=== PATIENT | male | born 1990 | race Caucasian/White ===

== ENCOUNTER 2024-12-16 16:43 | Emergency (ER) | payer BC, SELFPAY ==
--- NOTE | ~2024-12-16 | XR_ITS ---
EXAMINATION: XR chest 2V Exam Date/Time: 12/16/2024 17:15 LUMBER CARRIER HISTORY: Cough x 3 days. SOB x today. HX pneumonia Comparison: None. RESULT: Lines, tubes, and devices: None. Lungs and pleura: Clear. Cardiomediastinal silhouette: Normal. Other: No acute osseous or upper abdominal finding. IMPRESSION: No acute cardiopulmonary process. Reviewed, dictated and finalized at location K. ER CARRIER
[2024-12-16 16:50] VITALS: BP 139/85; PULSE 84; RESP 20; TEMP 36.5; O2SAT 100
--- NOTE | 2024-12-16 17:07 | ED.URI ---
HPI - URI/Sore Throat General Chief Complaint: Upper Respiratory Infection Stated Complaint: Pneumonia Symptoms Time Seen by Provider: 12/16/24 17:05 Source: patient Mode of arrival: ambulatory Limitations: no limitations History of Present Illness HPI Narrative: Erich is a 34-year-old male patient presenting to the clinic today with complaints of possible pneumonia. Report he has cough, some shortness of breath/back pain, feeling feverish, and congestion. He reports he has had pneumonia before and these are similar symptoms that he had had when he had pneumonia. He reports symptoms have been going on for approximately 2-3 days. MD elicited complaint: fever, cough, rhinorrhea and nasal congestion Related Data Home Medications ?Medication ?Instructions ?Recorded ?Confirmed ?Last Taken ?Type No Home Medications 12/16/24 12/16/24 Unknown History Allergies Allergy/AdvReac Type Severity Reaction Status Date / Time iodine Allergy Rash Verified 12/16/24 16:51 zolpidem (From Ambien) AdvReac Hallucinati Verified 12/16/24 16:51 ng Review of Systems Review of Systems: Pertinent positives per HPI. Patient denies any fever, chills, rash, headache, visual changes, dizziness, chest pain, palpitations, nausea, vomiting, diarrhea, constipation, abdominal pain, or any urinary issues. PMFSH Comments At the time of my signature, I reviewed and agree with the nursing past medical, surgical, social, and family history. There is no relevant family history pertinent to the patient complaint. Exam Narrative: General: Well-developed, well nourished, in no apparent distress Head: Normocephalic, atraumatic Eyes: Pupils equally round and reactive to light bilaterally, EOM intact, sclera and conjunctive clear, no discharge, lids normal Ears: TMs intact and clear, ear canals clear, no drainage, grossly hearing normal. Nose: Nares patent, clear nasal discharge, no inflammation, no sinus tenderness. Mouth: Oral pharynx without lesions or masses, good dentition, MMM. Postnasal drip Neck: Supple, trachea midline, no enlargement of anterior or posterior cervical nodes, no thyroid masses or goiter palpable. Cardio: Regular rate and rhythm, s1 and s2 normal, no murmur appreciated. Resp: Clear to auscultation bilaterally, no rhonchi, rales, wheezing or rubs Course Course Emergency Course: Portions of this record may have been created with voice recognition software. Level of Care: Express Care Visit Vital Signs Vital signs: Vital Signs Temperature 36.5 C 12/16/24 16:50 Pulse Rate 84 12/16/24 16:50 Respiratory Rate 20 12/16/24 16:50 Blood Pressure 139/85 12/16/24 16:50 Pulse Oximetry 100 12/16/24 16:50 Oxygen Delivery Room Air 12/16/24 16:50 Temperature 36.5 C 12/16/24 16:50 Pulse Rate 84 12/16/24 16:50 Respiratory Rate 20 12/16/24 16:50 Blood Pressure 139/85 12/16/24 16:50 Pulse Oximetry 100 12/16/24 16:50 Oxygen Delivery Room Air 12/16/24 16:50 Vital signs reviewed MDM - URI/Sore Throat MDM Narrative Medical decision making narrative: At the time of visit patient is resting comfortably on the exam table. Patient appears to be nontoxic. Labs: Influenza testing was negative in the clinic today. Diagnostics: Chest x-rays negative for any acute cardiopulmonary process. Plan: I suspect patient has URI with viral syndrome. Supportive measures were discussed with the patient and they voiced understanding discharge instructions and agrees to treatment plan. Return precautions reviewed Differential Diagnosis Differential diagnosis: Likely sinusitis, viral infection, influenza and pharyngitis Lab Data Labs: Lab Results 12/16/24 Range/Units 17:08 POC Influenza A Ag Negative (Negative) POC Influenza B Ag Negative (Negative) Imaging Data Radiologist's impression: ITS Impressions Chest X-Ray 12/16/24 17:26 IMPRESSION: No acute cardiopulmonary process. Discharge Plan Discharge Clinical Impression: Upper respiratory infection, Viral infection Patient Disposition: Home, Self-Care Condition: Stable Instructions: Antibiotic Form, Viral Syndrome (ED), Cold Symptoms (ED) Additional Instructions: Influenza testing is negative in the clinic today. Chest x-rays negative for any acute cardiopulmonary process. May take DayQuil/NyQuil for cold/flu symptoms Increase fluids and stay well hydrated Tylenol/motrin for pain/fever Flonase and OTC antihistamines as directed Vicks vapor rub to open sinuses Sinus rinses for congestion Cepacol spray, cough drops, throat lozenges, warm tea with honey/lemon, gargle salt water to soothe throat BRAT diet for diarrhea Clear liquids x 24 hours then advance as tolerated for nausea/vomiting Go to the ED if you develop a worsening in your condition- high fever not controlled by Tylenol or Motrin, dehydration, weakness, lethargy, shortness of breath, or chest pain. Follow up with your PCP in 3-5 days if symptoms persist. Patient Language: Lithuanian Prescriptions: No Action No Home Medications Follow-up/Referrals: PHYSICIAN,LIFE INSURANCE UNDERWRITER [Primary Care Provider] - Stand Alone Forms: Work/School Release IP Quality NIHSS Nursing Documentation ED NIHSS nursing documentation: reviewed/agree
[2024-12-16 17:09] LABS: EDINFLUASCREEN Negative (Negative); EDINFLUBSCREEN Negative (Negative)
== END 2024-12-16 17:36 | disposition home or self-care (01) ==
PROVIDERS: Emergency Provider Nurse Practitioner Family
DX: J06.9 Acute upper respiratory infection, unspecified (principal); B34.9 Viral infection, unspecified
CPT/HCPCS: 71046; 87804; 99203; G0463

== ENCOUNTER 2025-08-05 16:21 | Emergency (ER) | payer BC, SELFPAY ==
--- OUTSIDE RECORDS SUMMARY | 2025-01-02 10:45 | XMS_ITS ---
Author Organization [facility] Address [facility] [facility] [address] [place] [address] Care Team Providers Care Bench Grinder Name Role Phone Ricardo AYON, Raya Primary Care Provider Unavailab Nighat Lundberg Unavailable [phone] REASON FOR VISIT New Patient Social History Sex Assigned At : Social History Observation Description Sex Assigned At Male Encounters Encounter Location Date Provider Diagnosis [facility] [place] [address] [facility] [address] [place] [address] 01/02/2025 Nighat Chávez Plan Of Treatment No Information Progress Notes * Tierra VIERAOB:1990 (35 yo M)Acc No.[id number]:01/02/2025 Patient: Erich Walker Provider: DILEEP MCGUIRE :1990 A ge:34 Y S ex:Male Date:01/02/2025 [facility] Pcp:Raya Silva NP Subjective: * Chief Complaints: * N ew Patient Billing Information: * Procedure Codes: * Electronic signature of DILEEP Felix on 08/05/2025 at 05:09 PM CDT Sign off status: Pending * Provider: DILEEP MCGUIRE Date: 0 01/02/2025 Generated for Joon tomlinson/Maurilio/eTransmitting on: 1 05:09 PM CDT
--- NOTE | ~2025-08-05 | CT_ITS ---
EXAMINATION: CT abdomen pelvis wo eamon, 08/05/2025 16:45 CDT HISTORY: R flank/suprapubic pain, hematuria COMPARISON: No comparisons available. TECHNIQUE: CT scan of the abdomen and pelvis was performed without IV contrast. One or more of the following dose reduction techniques were used: automated exposure control, adjustment of the mA and/or kV according to patient size, use of iterative reconstruction technique. Unless otherwise stated, incidental findings do not require dedicated follow up imaging FINDINGS: CT abdomen: LUNG BASES: The lung bases are clear. The visualized portions of the heart and pericardium are unremarkable. LIVER: Unremarkable, liver contours intact, no lesions. SPLEEN: Unremarkable, no splenomegaly. KIDNEYS: Right Kidney: Right kidney mild hydronephrosis and hydroureter due to an obstructing proximal ureteral calculus 2 x 2 by 2 mm. Left Kidney: Left kidney midpole 2 mm calculus, no hydronephrosis. ADRENAL GLANDS: Unremarkable. PANCREAS: Unremarkable. GALLBLADDER/BILIARY: Unremarkable. No biliary dilatation. STOMACH AND ESOPHAGUS: Visualized stomach and esophagus within normal limits. BOWEL/MESENTERY: No colitis or diverticulitis. Appendix normal. Mesentery normal. No dilated small bowel loops. ADENOPATHY/RETROPERITONEUM: No lymphadenopathy. AORTA/VASCULATURE: Normal caliber aorta. FREE FLUID OR FREE AIR: None. CT pelvis: SOLID ORGANS/REPRODUCTIVE: Unremarkable. BLADDER: Within normal limits. OSSEOUS STRUCTURES: No acute osseous abnormality.No suspicious lesions. OVERLYING SOFT TISSUES: Unremarkable. IMPRESSION: 1. Right-sided obstructive uropathy Reviewed, dictated and finalized at location P.
[2025-08-05 16:29] VITALS: BP 124/72; PULSE 69; RESP 16; TEMP 36.6; O2SAT 100
[2025-08-05 16:34] VITALS: BP 124/72; PULSE 64; RESP 16; TEMP 36.6; O2SAT 100
[2025-08-05 16:42] LABS: Hematocrit 41.3 % (42.0-52.0); Hemoglobin 13.5 g/dL (14.0-18.0); Immature Granulocyte Percent A 0.1 % (0-0.5); Lymphocytes Absolute Auto 2.41 K/mm3 (0.9-3.2); Mean Corpuscular HGB Conc 32.7 g/dl (32-36); Mean Corpuscular Hemoglobin 28.7 pg (26-34); Mean Corpuscular Volume 87.9 fl (80-100); Nucleated Red Blood Cells Absolute Auto 0.000 K/mm3 (0.0-0.012); Nucleated Red Blood Cells Perc 0.0 % (0.0-0.2); Platelet Count Result 256 k/mm3 (150-375); Red Blood Count 4.70 M/mm3 (4.6-6.20); White Blood Count 8.2 K/mm3 (4.5-10.0)
--- OUTSIDE RECORDS SUMMARY | 2025-08-05 16:44 | XMS_ITS | Encounter Summary ---
Author Organization [facility] Healthcare Address [address] [place] [address] Care Team Providers Care Texturing Machine Fixer Name Role Phone Raya Silva NP Primary Care Provider [phone] Reason for Visit * Reason Onset Date Comments Appointment Request 08/05/2025 Encounter Details Date Type Department Care Team (Late st Contact Info) Description 08/05/[address] [facility] Medical Group Primary Care at [place] [id number] [place] [address] Raya Silva NP [address] [place] [address] [address] [place] [address] Appointment Request Social History Tobacco Use Types Packs/Day Years Used Date Smoking Tobacco: Every Day Vaping Smokeless Tobacco: Never AUDIT-C Answer Date Recorded Q1: How often do you have a drink containing alcohol? Never 11/25/2024 Q2: How many drinks containi ng alcohol do you have on a typical day when you are drinking? Patient does not drink Q3: How often do you have si x or more drinks on one occasion? 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 Visit Type: Established Patient What is the reason for the visit? [facility] follow up What is the reason we were unable to schedule the appointment? Current appointment availability didnot meet patient's need. If applicable, were all members of the patient's PCP care team offered (e.g., nurse practioner(s), physician intellectual property legal assistant(s)) ? Yes Additional Comments: patient was calling to schedule a [facility] follow up appt he was seen at the [facility] on 08/02/25 for blood in his urine with abdominal pain. He states all the tests they ranwere negative so he was told to follow up with his PCP. NANY Dos Santos has epic anesthesia analyst appts available until 09/10, patient wants to be seen sooner then taht, he doesn't have blood in his urine anymore but he is le ving mild/moderate abdominal pain daily, more frequently so he wants to be seen Elias. Does message need to be routed? Yes-Action Needed documented in this encounter Plan of Treatment Not on file documented as of this encounter Visit Diagnoses Not on filedocumented in this encounter Care Teams Texturing Machine Fixer Relationship Specialty Start Date End Date Raya Silva NP [address] [facility] [address] [place] [address] PCP - General Family Medicine 11/25/24 documented as of this encounter
--- OUTSIDE RECORDS SUMMARY | 2025-08-05 16:44 | XMS_ITS | Encounter Summary ---
Author Organization [facility] Healthcare Address [address] [place] [address] Care Team Providers Care Chainstitch Elastic Attacher Name Role Phone Raya Silva NP Primary Care Provider [phone] Encounter Details Date Type Department Care Team (Late st Contact Info) Description 08/02/2025 Results Follow-Up [facility] Medical Group Convenient Care at [place] [address] [place] [address] Rose Marquez NP [address] [place] [address] [address] [place] [address] Trichomonas vaginalis PCR Urine, N. gonorrhoeae/C. 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
--- OUTSIDE RECORDS SUMMARY | 2025-08-05 16:45 | XMS_ITS | Clinical Summary ---
Author Organization [address] Address [address] [facility] 5th [place] [address] Care Team Providers Care Engine Watchman Name Role Phone Raya Silva NP Primary Care Provider [phone] Allergies Active Allergy Reactions Criticality Noted Date Comments Iodine Rash Medium 11/25/2024 Zolpidem Other (See comments) High 11/22/2014 Causes pt to sleep walk, becomes aggressive with blackouts, In 2011 found sleep walking in his backyard with bow and arrow. Medications No known medications Active Problems Problem Noted Date Diagnosed Date ADHD 11/25/2024 Assessment & Plan (11/25/2024 12:27 PM PHARMACEUTICAL OFFICER): History of ADHD. He is not sure he wants to restart treatment. Since his general store manager and coworkers have said something to him I recommended that he be evaluated by Psychiatry. I referred him to [facility] associates here in town. Annual physical exam 11/25/2024 Assessment & Plan (11/25/2024 12:28 PM PHARMACEUTICAL OFFICER): -Recommended: Healthy diet. Avoiding junk food/fast food. -30 minutes of exercise most days of the week. Increase to 45 minutes for weight loss. Health Maintenance reviewed - labs ordered today. -Influenza vaccine every year Recommend: - Topic Date Due Pneumococcal vaccine <65 (1 of 2 - PCV) Never done Varicella Vaccines (1 of 2 - 13+ 2-dose series) Never done -F/u in 1 year for Annual PE or sooner if needed Bipolar disorder 11/22/2014 Resolved Problems Problem Noted Date Diagnosed Date Resolved Date Marijuana abuse 11/22/2014 11/25/2024 Patient nonadherence 11/22/2014 025 Encounters Date Type Department Care Team Description 08/05/2025 Telephone [facility] Primary Care at [address] [phone] Raya Silva NP Appointment Request 08/02/2025 Results Follow-Up [facility] Convenient Care at [address] [phone] Rose Marquez NP Trichomonas vaginalis PCR Urine, N. gonorrhoeae/C. trachomatis Amplification Urine, Urine culture Urine, clean voided 07/31/2025 3:51 PM CDT - 07/31/2025 11:59 [place] [address] Abdominal pain, unspecified abdominal location Discharge Disposition: Discharge to home or self care 07/31/2025 3:30 PM CDT Office Visit [facility]ient Care at [address] [phone] Kamilah Abel NP Hematuria, unspecified type (Primary Dx); Abdominal pain, unspecified abdominal location from Last 3 Months Immunizations Immunization Administration Dates Next Due DTP 06/06/1997,03/07/1994,04/30/1993 ,03/15/1993 Hep A, Pediatric 03/12/2007,08/25/2006 Hep B, Adolescent or Pediatric 08/20/2001,1997,06/06/1997 HiB 06/06/1997,03/07/1994,04/30/1993 ,03/15/1993 Influenza, Unspecified 08/21/2024(Deferr ed: Patient Refused),08/21/2023(Deferred: Patient Refused),01/07/2012 MMR 07/20/1998,03/07/1994 Meningococcal MCV4P (Menactra) 08/25/2006 OPV 06/06/1997,03/07/1994,04/30/1993 ,03/15/1993 Td, adsorbed 12/07/2004 Tdap 05/18/2018 Surgical History Surgery Date Site/Laterality Comments APPENDECTOMY Medical History Medical History Date Comments Bipolar disorder POTS (postural orthostatic tachycardia syndrome) Family History Medical History Relation Name Comments sarcoma Brother Brain cancer Maternal Grandfather Breast cancer Maternal Grandmother Breast cancer Mother Pancreatic cancer Paternal Grandfather Stomach cancer Paternal Grandfather Throat cancer Paternal Grandfather Breast cancer Paternal Grandmother Diabetes Paternal Grandmother Relation Name Status Comments Brother Maternal Grandfather Maternal Grandmother Mother Paternal Grandfather Paternal Grandmother Social History Tobacco Use Types Packs/Day Years Used Date Smoking Tobacco: Every Day Vaping Smokeless Tobacco: Never Tobacco Cessation:Ready to Q uit: Not Asked; Counseling Given: Not Answered AUDIT-C Answer Date Recorded Q1: How often [...] on file Legal Sex Male 9:08 AM PHARMACEUTICAL OFFICER Gender Identity Not on file Sexual Orientation Not on file Obstetrics History Last Filed Vital Signs Vital Sign Reading Time Taken Comments Blood Pressure 102/68 07/31/2025 3:46 PM CDT Pulse 74 07/31/2025 3:46 PM CDT Temperature 36.4 C (97.5 F) 07/31/2025 3:46 PM CDT Respiratory Rate 16 07/31/2025 3:46 PM CDT Oxygen Saturation 99% 07/31/2025 3:46 PM CDT Inhaled Oxygen Concentration - - Weight 77.1 kg (170 lb) 07/31/2025 3:46 PM CDT Height 179.1 cm (5' 10.5) 11/25/2024 11:[address] Body Mass Index 24.05 11/25/2024 11:45 AM PHARMACEUTICAL OFFICER Plan of Treatment Health Maintenance Due Date Last Done Comments Varicella Vaccines (1 of 2 - 13+ 2-dose series) 2005 Pneumococcal vaccine <65 (1 of 2 - PCV) 2011 HPV Vaccines (1 - 3-dose SCD M series) 2019 Influenza Vaccine (#1) 2025 01/07/2012 Depression Screening 11/25/2025 11/25/2024, 11/25/19 25 Regular Well Visit/Exam 18-64 11/25/2025 11/25/2024 DTaP/Tdap/Td Vaccine (6 - Td or Tdap) 05/18/2028 05/18/2018, 12/07/2004, 06/06/1997, Additional history exists Hepatitis B Screening Completed 08/20/2001 , 07/20/1998, 06/06/1997 Hepatitis C Screening Completed 11/25/2024 Procedures Procedure Name Priority Date/Time Associated Diagnosis Comments POCT URINALYSIS DIPSTICK Routine 07/31/2025 3:53 PM CDT Abdominal pain, unspecified abdominal location URINE CULTURE Routine 07/31/2025 3:51 PM CDT Abdominal pain, unspecified abdominal location N. GONORRHOEAE/C. TRACHOMATIS AMPLIFICATION Routine 07/31/2025 3:51 PM CDT Abdominal pain, unspecified abdominal location TRICHOMONAS VAGINALIS PCR Routine 07/31/2025 3:51 PM CDT Abdominal pain, unspecified abdominal location HEPATITIS C ANTIBODY Routine 11/25/2024 12:11 PM PHARMACEUTICAL OFFICER Need for hepatitis C screening test Encounter for hepatitis C screening test for low risk patient from Last 3 Months or Most Recently Relevant to Health Maintenance Results * (ABNORMAL) POCT urinalysis dipstick (07/31/2025 3:53 PM CDT) Color, Urine, POC Raine Clarity, ur, POC Turbid(A) Clear Glucose, ur, POC Negative Negative Bilirubin, ur, POC Negative Negative Ketones, ur, POC Negative Negative Specific [place], POC 1.015 1.003 - 1.030 Blood, ur, POC Large(A) Negative pH, ur, POC 7.5 5.0 - 8.0 Protein, ur, POC Negative Negative Urobilinogen, urine, POC 0.2 0.2 - 1.0 mg/dL Nitrite, ur, POC Negative Negative Leukocytes, ur, POC Negative Negative Lot Number [id number] Urine 07/31/2025 3:53 PM CDT Kamilah Abel NP POINT OF CARE TEST ORDERABLES Final Result * N. gonorrhoeae/C. trachomatis Amplification Urine (07/31/2025 3:51 PM CDT) C. trachomatis Not Detected [facility] Comment:Testing performed by : [facility], [address] [place] [address]., [id number] N. gonorrhoeae Not Detected [facility] Comment: Interpretive Data This assay detects Chlamydia trachomatis and Neisseria gonorrhoeae by nucleic acid amplification testing (NAAT). This assay has been cleared by the [place] Food and Drug administration. The performance characteristics of this test have been verified by the [facility] Molecular Infectious Disease laboratory. The performance characteristics of this test have not been evaluated in individuals less than 14 years of age. Current Interpretive Data was last revised on 2023. Testing performed by: [facility], [address] [place] [address]., [id number] Urine (None) 07/31/2025 3:51 PM CDT 08/01/2025 3:12 PM CDT Kamilah Abel NP LAB MICROBIOLOGY - GENERAL ORD ERABLES Final Result [facility] [id number] [address] Department [place] [address] [facility] * Trichomonas vaginalis PCR Urine (07/31/2025 3:51 PM CDT) Trichomonas DNA Not Detected [facility] Comment: Interpretive Data This assay detects Trichomonas vaginalis by nucleic acid amplification testing (NAAT). This assay has been cleared by the [place] Food and Drug administration. The performance characteristics of this test have been verified by the [facility] Molecular Infectious Disease laboratory. The performance of this test has not been evaluated in individuals less than 18 years of age. Current Interpretive Data was last revised on 2023. Testing performed by: [facility], [address] [place]., [address] Urine 07/31/2025 3:51 PM CDT 08/01/2025 3:12 PM CDT Kamilah Abel NP LAB MICROBIOLOGY - GENERAL ORD ERABLES Final Result Performing Organization Address [facility] de Phone Number [facility] [address] [address] [place] [address] [facility] * Urine culture Urine, clean voided (07/31/2025 3:51 PM CDT) Report Final Report: Less than 100,000 colonies/mL (clinically insignificant growth based on current clinical standards) Comment:Testing performed by : [facility], [address] [place] [address]., [id number] Organism (CLINICALLY INSIGNIFICANT GROWTH [facility] Urine, clean voided 07/31/2025 3:51 PM CDT 07/31/2025 10:39 PM CDT Narrative [facility] - 08/02/2025 9:16 AM CDT Testing performed by [facility] Microbiology Laboratory ([phone]) Kamilah Abel NP LAB MICROBIOLOGY - GENERAL ORD ERABLES Final Result Performing Organization Address [facility] de Phone Number [facility] [address] [address] [place] [address] * Hepatitis C antibody Blood (11/25/2024 12:11 PM PHARMACEUTICAL OFFICER) Hep C Ab Nonreactive Nonreactive Comment: Interpretive Data Nonreactive: Antibodies to HCV not detected. Does NOT exclude the possibility of recent exposure to HCV. Equivocal: Equivocal for HCV antibodies. Supplemental molecular testing will be automatically performed to determine infection status in accordance with current CDC screening recommendations. Reactive: Positive for HCV antibodies. This may represent current or past HCV infection. Supplemental molecular testing will be automatically performed to determine current infection status in accordance with current CDC screening recommendations. Interpretive data was last revised on 2020. Blood 11/25/2024 12:1 1 PM PHARMACEUTICAL OFFICER 11/25/2024 7:23 PM PHARMACEUTICAL OFFICER Raya Silva NP LAB MICROBIOLOGY - GENERAL OR DERABLES Final Result [facility] [id number] [address] Department [place] [address] from Last 3 Months or Most Recently Relevant to Health Maintenance Insurance [employer] OOS Care Teams Engine Watchman Relationship Specialty Start Date End Date Raya Silva NP [address] [facility] [address] [place] [address] PCP - General Family Medicine 11/25/24
[2025-08-05 16:53] LABS: Alanine Aminotransferase 15 U/L (6-50); Albumin Level 4.4 g/dL (3.5-5.1); Alkaline Phosphatase 75 U/L (38-126); Anion Gap 7 mmol/L (4-12); Aspartate Amino Transferase 30 U/L (17-59); Bilirubin,Total 0.5 mg/dL (0.2-1.3); Blood Urea Nitrogen 15 mg/dL (9-20); Calcium 9.2 mg/dL (8.4-10.2); Carbon Dioxide 28 mmol/L (22-30); Chloride 103 mmol/L (98-107); Estimated CRCL calculation 106 ml/min; Estimated Glomerular Filt Rate > 60; Glucose 88 mg/dL (65-110); Potassium 4.6 mmol/L (3.4-5.0); Sodium 138 mmol/L (137-145); Total Protein 7.4 g/dL (6.3-8.2)
--- NOTE | 2025-08-05 17:07 | ED_ITS ---
HPI - Abdominal Pain General Chief Complaint: Abdominal Pain Stated Complaint: blood in urine, abd and back pain since monday Time Seen by Provider: 08/05/25 16:28 History of Present Illness HPI narrative: For last 6 days, patient has noticed some blood in his urine, and suprapubic pain, has also had some pain to the right lower back. Went to an urgent care where he was told that his tests including STD test were negative. Related Data Allergies Allergy/AdvReac Type Severity Reaction Status Date / Time iodine Allergy Rash Verified 08/05/25 16:35 zolpidem (From Ambien) AdvReac Hallucinati Verified 08/05/25 16:35 ng Review of Systems 2 Review of Systems: All systems reviewed & are unremarkable except as noted in HPI and below Exam 2 Narrative: EXAMINATION OF ORGAN SYSTEMS/BODY AREAS: Constitutional: Vital signs per nursing GENERAL:[No acute distress, non-toxic appearing.] HEAD: Normal with no signs of head trauma. EYES: EOMI, conjunctiva normal ENT: Hearing grossly intact LUNGS: Nonlabored breathing. HEART: [Regular rate and rhythm] ABD: [Soft], [nontender to palpation] EXT: Normal range of motion SKIN: [No rashes or lesions.] NEURO: [Alert and oriented x 3. No gross focal sensory or strength deficits.] PSYCH: Normal affect Course Vital Signs Vital signs: Vital Signs Temperature 97.9 F 08/05/25 16:29 Pulse Rate 69 08/05/25 16:29 Respiratory Rate 16 08/05/25 16:29 Blood Pressure 124/72 08/05/25 16:29 Pulse Oximetry 100 08/05/25 16:29 Oxygen Delivery Room Air 08/05/25 16:29 Temperature 98.2 F 08/05/25 18:16 Pulse Rate 74 08/05/25 18:16 Respiratory Rate 15 08/05/25 18:16 Blood Pressure 120/79 08/05/25 18:16 Pulse Oximetry 100 08/05/25 18:16 Oxygen Delivery Room Air 08/05/25 16:29 MDM - Abdominal Pain MDM Narrative Medical decision making narrative: ED COURSE AND MEDICAL DECISION MAKIN-year-old male presenting to the emergency department for 6 days of some slight pain to the right flank with blood in urine, symptoms are concerning for likely renal colic versus pyelonephritis. Urinalysis is ordered. Patient feels fine without pain medication at this time. CT scan of the abdomen/pelvis is ordered. Labs are remarkable for: Blood in urine. Normal creatinine CT scan of the abdomen/pelvis is reviewed by myself and interpreted by radiology: 2 mm proximal ureteral stone on right. Findings discussed with patient, he is happy to have an answer. Continues to feel fine is fine taking Tylenol and ibuprofen at home as needed. Patient is strongly advised to return to the emergency department for any increasing pain not improving with medications, persistent nausea vomiting, fevers or chills or for any other concerns. Follow-up to urologist provided. Patient is comfortable with this plan and was discharged in fair condition. Procedures: Pulse oximetry interpretation - not hypoxic. Review of medical records. Lab Data 08/05/25 16:37 08/05/25 16:37 Labs: Lab Results 08/05/25 08/05/25 Range/Units 16:37 17:35 WBC 8.2 (4.5-10.0) K/mm3 RBC 4.70 (4.6-6.20) M/mm3 Hgb 13.5 L (14.0-18.0) g/dL Hct 41.3 L (42.0-52.0) % MCV 87.9 (80-100) fl MCH 28.7 (26-34) pg MCHC 32.7 (32-36) g/dl RDW 13.8 (11.5-14.5) % Plt Count 256 (150-375) k/mm3 MPV 10.0 (7.4-10.4) fl Immature Gran % (Auto) 0.1 (0-0.5) % Neut % (Auto) 54.1 (45.5-73.1) % Lymph % (Auto) 29.6 (18.3-44.2) % [place] % (Auto) 10.7 H (2.6-8.5) % Eos % (Auto) 4.5 H (0-4.4) % Baso % (Auto) 1.0 (0.2-1.2) % Lymph # (Auto) 2.41 (0.9-3.2) K/mm3 [place] # (Auto) 0.9 H (0.1-0.6) K/mm3 Eos # (Auto) 0.4 H (0-0.3) K/mm3 Baso # (Auto) 0.1 (0.0-0.1) K/mm3 Abs Immat Gran (auto) 0.01 (0.00-0.031) K/mm3 Absolute Neuts (auto) 4.4 (1.3-6.7) K/mm3 Absolute Nucleated RBC 0.000 (0.0-0.012) K/mm3 Nucleated RBC % 0.0 (0.0-0.2) % Sodium 138 (137-145) mmol/L Potassium 4.6 (3.4-5.0) mmol/L Chloride 103 (98-107) mmol/L Carbon Dioxide 28 (22-30) mmol/L Anion Gap 7 (4-12) mmol/L BUN 15 (9-20) mg/dL Creatinine 0.93 (0.7-1.3) mg/dL Estim Creat Clear Calc 106 ml/min Estimated GFR > 60 (59 - ) Glucose 88 (65-110) mg/dL Calcium 9.2 (8.4-10.2) mg/dL Total Bilirubin 0.5 (0.2-1.3) mg/dL AST 30 (17-59) U/L ALT 15 (6-50) U/L Alkaline Phosphatase 75 (38-126) U/L Total Protein 7.4 (6.3-8.2) g/dL Albumin 4.4 (3.5-5.1) g/dL Urine Color Yellow (Yellow) Urine Appearance Turbid H (Clear) Urine pH 8.5 (5.0-9.0) Ur Specific [place] 1.017 (1.001-1.035) Urine Protein Trace (Negative) mg/dL Urine Glucose (UA) Negative (Negative) mg/dL Urine Ketones Negative (Negative) mg/dL Ur Blood (Man) 3+ H (Negative) Urine Nitrate Negative (Negative) Urine Bilirubin Negative (Negative) Urine Urobilinogen 1.0 (<2.0) mg/dL Leukocyte Esterase Rfl Negative (Negative) CHARLEEN/UL Urine RBC >100 H (0-2) /hpf Urine WBC 0-5 (0-3) /hpf Ur Squamous Epith Cells None seen (Few) /hpf Urine Bacteria None seen /hpf Urine Casts 0-2 Imaging Data Radiologist's impression: ITS Impressions Abdomen/Pelvis CT 08/05/25 17:13 IMPRESSION: 1. Right-sided obstructive uropathy Discharge Plan Discharge Clinical Impression: Kidney stone Patient Disposition: Home Condition: Stable Instructions: Antibiotic Form, Kidney Stones (ED) Additional Instructions: Please follow-up with a urologist. Make sure keeping adequately hydrated. Try the medications as prescribed. If you start having any fevers or chills, nausea vomiting or anything else concerning, return to the ER immediately. Patient Language: Australian Prescriptions: New tamsulosin [Flomax] 0.4 mg capsule 0.4 mg PO DAILY Qty: 14 0RF Follow-up/Referrals: Isra Hurtado MD [Physician, Urology] - 2 Days PHYSICIAN NOT ON STAFF,NONSTAFF [Non-Staff]
--- OUTSIDE RECORDS SUMMARY | 2025-08-05 17:09 | XMS_ITS | Encounter Summary ---
Author Organization [facility] Healthcare Address [address] [place] [address] Care Team Providers Care Master Of Ceremonies Name Role Phone Raya Silva NP Primary Care Provider [phone] Reason for Visit * Reason Onset Date Comments Appointment Request 08/05/2025 Encounter Details Date Type Department Care Team (Late st Contact Info) Description 08/05/2025 Telephone [facility] Medical [facility] Primary Care at [place] [id number] [place] [address] Raya iSlva NP [address] [place] [address] [address] [place] [address] Appointment Request Social History Tobacco [...] on file 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 Visit Type: Established Patient What is the reason for the visit? [facility] follow up What is the reason we were unable to schedule the appointment? Current appointment availability didnot meet patient's need. If applicable, were all members of the patient's PCP care team offered (e.g., nurse practioner(s), physician hospital clinic assistant(s)) ? Yes Additional Comments: patient was calling to schedule a [facility] follow up appt he was seen at the [facility] on 08/02/25 for blood in his urine with abdominal pain. He states all the tests they ranwere negative so he was told to follow up with his PCP. NANY Dos Santos has buffer automatic appts available until 09/10, patient wants to [...] on filedocumented in this encounter Care Teams Master Of Ceremonies Relationship Specialty Start Date End Date Raya Silva NP [address] [facility] [address] [place] [address] PCP - General Family Medicine 11/25/24 documented as of this encounter
--- OUTSIDE RECORDS SUMMARY | 2025-08-05 17:09 | XMS_ITS | Clinical Summary ---
Author Organization [address] Address [address] [facility] 5th [place] [address] Care Team Providers Care Blast Furnace Operator Name Role Phone Raya Silva NP Primary Care Provider [phone] Allergies Active Allergy Reactions Criticality Noted Date Comments Iodine Rash Medium 11/25/2024 Zolpidem Other (See comments) High 11/22/2014 Causes pt to sleep walk, becomes aggressive with blackouts, In 2011 found sleep walking in his backyard with bow and arrow. Medications No known medications Active Problems Problem Noted Date Diagnosed Date ADHD 11/25/2024 Assessment & Plan (11/25/2024 12:27 PM ALUMINIZER): History of ADHD. He is not sure he wants to restart treatment. 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 I referred him to [facility] associates here in town. Annual physical exam 11/25/2024 Assessment & Plan (11/25/2024 12:28 PM ALUMINIZER): -Recommended: Healthy diet. Avoiding junk food/fast food. [...] Telephone [facility] Primary Care at [address] [phone] Raya Silva NP Appointment Request 08/02/2025 Results Follow-Up [facility] at [address] [phone] Rose Marquez NP Trichomonas vaginalis PCR Urine, N. gonorrhoeae/C. trachomatis Amplification Urine, Urine culture Urine, clean voided 07/31/2025 3:51 PM CDT - 07/31/2025 11:59 PM CD[place] [address] Abdominal pain, unspecified abdominal location Discharge Disposition: Discharge to home or self care 07/31/2025 3:30 PM CDT Office Visit [facility] at [address] [phone] Kamilah Abel NP Hematuria, unspecified type (Primary [...] on file Legal Sex Male 9:08 AM ALUMINIZER Gender Identity Not on file Sexual Orientation [...] Body Mass Index 24.05 11/25/2024 11:45 AM ALUMINIZER Plan of Treatment Health Maintenance Due Date [...] HEPATITIS C ANTIBODY Routine 11/25/2024 12:11 PM ALUMINIZER Need for hepatitis C screening test Encounter for hepatitis C screening test for low risk patient from Last 3 Months or Most Recently Relevant to Health Maintenance Results * (ABNORMAL) POCT urinalysis dipstick (07/31/2025 3:53 PM CDT) Color, Urine, POC Raine Clarity, ur, POC Turbid(A) Clear Glucose, ur, POC Negative Negative Bilirubin, ur, POC Negative Negative Ketones, ur, POC Negative Negative Specific Downs, POC 1.015 1.003 - 1.030 Blood, ur, POC Large(A) Negative pH, ur, POC 7.5 5.0 - 8.0 Protein, ur, POC Negative Negative Urobilinogen, urine, POC 0.2 0.2 - 1.0 mg/dL Nitrite, ur, POC Negative Negative Leukocytes, ur, POC Negative Negative Lot Number [id number] Urine 07/31/2025 3:53 PM CDT Kamilah Abel NP POINT OF CARE TEST ORDERABLES Final Result * N. gonorrhoeae/C. trachomatis Amplification Urine (07/31/2025 3:51 PM CDT) C. trachomatis Not Detected [facility] Comment:Testing performed by : [facility], [address] [place] [address]., [id number] N. gonorrhoeae Not Detected [facility] Comment: Interpretive Data This assay detects Chlamydia trachomatis and Neisseria gonorrhoeae by nucleic acid amplification testing (NAAT). This assay has been cleared by the [place] Food and Drug administration. The performance characteristics of this test have been verified by the [facility] Molecular Infectious Disease laboratory. The performance characteristics of this test have not been evaluated in individuals less than 14 years of age. Current Interpretive Data was last revised on 2023. Testing performed by: [facility], [address] [place] [address]., [id number] Urine (None) 07/31/2025 3:51 PM CDT 08/01/2025 3:12 PM CDT Kamilah Abel NP LAB MICROBIOLOGY - GENERAL ORD ERABLES Final Result [facility] [id number] [address] Department [place] [address] [facility] * Trichomonas vaginalis PCR Urine (07/31/2025 3:51 PM CDT) Trichomonas DNA Not Detected [facility] Comment: Interpretive Data This assay detects Trichomonas vaginalis by nucleic acid amplification testing (NAAT). This assay has been cleared by the [place] Food and Drug administration. The performance characteristics of this test have been verified by the [facility] Molecular Infectious Disease laboratory. The performance of this test has not been evaluated in individuals less than 18 years of age. Current Interpretive Data was last revised on 2023. Testing performed by: [facility], [address] [place]., [address] Urine 07/31/2025 3:51 PM CDT 08/01/2025 3:12 PM CDT Kamilah Abel NP LAB MICROBIOLOGY - GENERAL ORD ERABLES Final Result Performing Organization Address [facility] de Phone Number [facility] [address] [address] [employer] [place] [address] [facility] * Urine culture Urine, clean voided (07/31/2025 3:51 PM CDT) Report Final Report: Less than 100,000 colonies/mL (clinically insignificant growth based on current clinical standards) Comment:Testing performed by : [facility], [address] [place] [address]., [id number] Organism (CLINICALLY INSIGNIFICANT GROWTH [facility] Urine, clean voided 07/31/2025 3:51 PM CDT 07/31/2025 10:39 PM CDT Narrative [facility] - 08/02/2025 9:16 AM CDT Testing performed by [facility] Microbiology Laboratory ([phone]) Kamilah Abel NP LAB MICROBIOLOGY - GENERAL ORD ERABLES Final Result Performing Organization Address [facility] de Phone Number [facility] [id number] [address] [employer] [place] [address] * Hepatitis C antibody Blood (11/25/2024 12:11 PM ALUMINIZER) Hep C Ab Nonreactive Nonreactive Comment: Interpretive [...] on 2020. Blood 11/25/2024 12:1 1 PM ALUMINIZER 11/25/2024 7:23 PM ALUMINIZER Raya Silva NP LAB MICROBIOLOGY - GENERAL OR DERABLES Final Result [facility] [address] [address] Department [place] [address] from Last 3 Months or Most Recently Relevant to Health Maintenance Insurance Turing Data OOS Care Teams Blast Furnace Operator Relationship Specialty Start Date End Date Raya Silva NP [address] [facility] [address] [place] [address] PCP - General Family Medicine 11/25/24
--- OUTSIDE RECORDS SUMMARY | 2025-08-05 17:09 | XMS_ITS | Encounter Summary ---
Author Organization [facility] Healthcare Address [address] [place] [address] Care Team Providers Care Insurance Account Executive Name Role Phone Raya Silva NP Primary Care Provider [phone] Encounter Details Date Type Department Care Team (Late st Contact Info) Description 08/02/2025 Results Follow-Up [facility] at [place] [id number] [place] [address] Rose Marquez NP [address] [place] [address] [address] [place] [address] Trichomonas vaginalis PCR Urine, N. 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
--- OUTSIDE RECORDS SUMMARY | 2025-08-05 17:09 | XMS_ITS | Patient Health Record ---
Author Organization [facility] [employer] [facility] Address [address] [place] [address] Care Team Providers Care Sales Operations Director Name Role Phone Ricardo AYON, Raya Primary Care Provider Unavailab Nighat Lundberg Unavailable [phone] Reason For Referral No Information Social History Sex Assigned At : Social History Observation Description Sex Assigned At Male Plan Of Treatment No Information Insurance Providers Payer Name Payer Address Payer Phone Subscriber Number Group Number Insured Name Patient Relationship to Insured Coverage Start Date Coverage End Date [facility] [address] [place] [address] [id number] Erich Jiang Self - patient is the insured
[2025-08-05 17:45] LABS: Add Urine Microscopic? YES; Appearance Urine Turbid (Clear); Glucose Urine UA Negative (Negative); Leukocyte Esterase Ur Negative LEU/UL (Negative); Nitrate Urine Negative (Negative); Non Pathogenic Casts 0-2; Specific Grav Ur 1.017 (1.001-1.035)
[2025-08-05 18:16] VITALS: BP 120/79; PULSE 74; RESP 15; TEMP 36.8; O2SAT 100
== END 2025-08-05 18:18 | disposition home or self-care (01) ==
PROVIDERS: Emergency Provider Emergency Medicine; PCP Nurse Practitioner Family
DX: N13.2 Hydronephrosis with renal and ureteral calculous obstruction (principal)
CPT/HCPCS: 36415; 74176; 80053; 81001; 85025; 99284

== ENCOUNTER 2025-08-06 15:52 | Observation (INO) | payer BC, SELFPAY ==
--- NOTE | ~2025-08-06 | XR_ITS ---
EXAMINATION: XR retrograde pyelo w/stent BI DATE: 08/07/2025 16:27 INDICATION: Right internal ureteral stent placement TECHNIQUE: 119 fluoroscopic images of the abdomen and pelvis were obtained during procedure performed by Dr. Lozano. Radiologist was not present for the imaging or procedure. The amount of fluoroscopy time used during this procedure was 1.2 minutes. Total DAP was 0.846 mGym^2. COMPARISON: None. FINDINGS: Images demonstrate a catheter advanced to the left renal pelvis with contrast injection demonstrating mild right hydronephrosis. Subsequent images demonstrate placement of a right internal ureteral stent with proximal loop formed in the right renal pelvis. IMPRESSION: 1. Fluoroscopy utilized during right retrograde pyelogram and internal ureteral stent placement with proximal loop formed in the right renal pelvis. See procedure note for further detail. Reviewed, dictated and finalized at location A. IMPRESSION: 1. Fluoroscopy utilized during right retrograde pyelogram and internal ureteral stent placement with proximal loop formed in the right renal pelvis. See proce dure note for further detail.
--- NOTE | ~2025-08-06 | XR_ITS ---
Abdominal radiograph(s) INDICATION: Right kidney stone COMPARISON: CT 1 day prior TECHNIQUE: 2 view supine AP abdomen FINDINGS: Small stone proximal right ureter persists. Small stone left kidney persists. Pelvic phleboliths. Lung bases clear. Scattered colonic stool. Small bowel loops not well seen. No evidence of organomegaly. No acute bony abnormality. IMPRESSION: 1. Small stone proximal right ureter persists. 2. Small stone left kidney persists. Reviewed, dictated and finalized at location R.
--- NOTE | ~2025-08-06 | XR_ITS ---
Abdominal radiograph(s) INDICATION: Right ureteral stone COMPARISON: X-rays one day prior TECHNIQUE: 2 view supine AP abdomen FINDINGS/IMPRESSION: 1. Right ureteral stone no longer identified. 2. Small left renal stone persists. 3. No other acute abnormality noted. Reviewed, dictated and finalized at location R.
[2025-08-06 15:57] VITALS: BP 117/71; PULSE 81; RESP 20; TEMP 36.5; O2SAT 100
[2025-08-06 18:10] VITALS: BP 139/70; PULSE 66; RESP 12; O2SAT 100
--- NOTE | 2025-08-06 19:25 | ED.ABDPAIN ---
HPI - Abdominal Pain General Chief Complaint: Recheck/Abnormal Lab/Rx <Loreto Childs APRN - Last Filed: 08/06/25 23:33> Stated Complaint: kidney stones <Loreto Childs APRN - Last Filed: 08/06/25 23:33> Time Seen by Provider: 08/06/25 18:30 <Loreto Childs APRN - Last Filed: 08/06/25 23:33> History of Present Illness HPI narrative: Patient is a 35-year-old male who presents to the ER with left-sided flank pain. He reports he was here in the ER yesterday and diagnosed with a kidney stone. Patient reports he declines pain medication at that time and went home feeling relatively comfortable. He reports today the pain became significantly worse in his left flank. Patient also endorses decreased urine output. He denies any nausea/vomiting, recent fevers, or chest pain. Patient denies any other medical history relevant to this ER visit. <Loreto Childs APRN - Last Filed: 08/06/25 23:33> Related Data Allergies/Adverse Reactions: Allergies Allergy/AdvReac Type Severity Reaction Status Date / Time iodine Allergy Rash Verified 08/07/25 03:17 zolpidem (From Ambien) AdvReac Hallucinati Verified 08/07/25 03:17 ng <Loreto Childs APRN - Last Filed: 08/06/25 23:33> Review of Systems Review of Systems: All systems reviewed & are unremarkable except as noted in HPI and below <Loreto Childs APRN - Last Filed: 08/06/25 23:33> [facility] Family History Family History: Family History (Updated 08/07/25 @ 02:25 by Rogelio Velazquez RN) Mother Breast cancer in female Grandparent Diabetes mellitus Sibling Cancer <Loreto Childs APRN - Last Filed: 08/06/25 23:33> Social History Social History: Social History (Updated 08/07/25 @ 15:21 by David Gayle DO) Smoking status: Former smoker Tobacco type: e-cigarettes/vaping Alcohol intake: former Substance use: current Substance use type: marijuana Other substance usage details: daily Lack of Transportation: No Lack of Food: Often True Current Housing: I Have Housing Concerned About Future Housing: No Difficulty Paying Gas/Electric Bills: No Difficulty Paying for Meds: No Currently Unemployed: No Education: High School Diploma/GED Difficulty w/ Childcare or Family Care: No Spiritual care concerns: No <Loreto Childs, MANAGER FRONT OFFICE - Last Filed: 08/06/25 23:33> Exam Narrative: GENERAL: Ill appearing, well-nourished, non-toxic, in acute distress. HEAD: Normocephalic, atraumatic. NECK: Supple. No adenopathy, no masses. RESPIRATORY: Airway patent, respirations nonlabored. Clear to auscultation bilaterally, no rales, rhonchi, wheezing. CARDIOVASCULAR: Regular rate and rhythm without murmurs, rubs, or gallops. Peripheral pulses 2+ and equal bilaterally. + L CVA tenderness ABDOMINAL: Soft, nontender, nondistended, no hepatosplenomegaly. Normoactive BS. MUSCULOSKELETAL: Moves all extremities. Strength/ROM intact without gross deformities. SKIN: Warm, dry, normal color. No rashes. NEURO: A&O X3. Speech clear. Cranial nerves II-XII intact. No ataxic movements. PSYCHIATRIC: Appropriate mood and affect. Normal interaction. <Loreto Childs, MANAGER FRONT OFFICE - Last Filed: 08/06/25 23:33> Course UNDERCOVER OPERATOR/PA Physician Supervision I was made aware that this patient was being admitted to the hospital pain control found to have a kidney stone. Was available for consultation while patient was in the emergency department but did not personally evaluate them and was not directly involved in her care. <Abeba Oconnell MD - Last Filed: 08/08/25 08:10> Vital Signs Vital signs: Vital Signs Temperature 97.7 F 08/06/25 15:57 Pulse Rate 81 08/06/25 15:57 Respiratory Rate 20 08/06/25 15:57 Blood Pressure 117/71 08/06/25 15:57 Pulse Oximetry 100 08/06/25 15:57 Temperature 97.7 F 08/07/25 17:50 Pulse Rate 65 08/07/25 17:50 Respiratory Rate 18 08/07/25 17:50 Blood Pressure 105/80 08/07/25 17:50 Pulse Oximetry 100 08/07/25 17:50 Oxygen Delivery Room Air 08/07/25 16:53 Oxygen Flow Rate 8 08/07/25 16:21 <Loreto Childs APRN - Last Filed: 08/06/25 23:33> Vital Signs Temperature 97.7 F 08/06/25 15:57 Pulse Rate 81 08/06/25 15:57 Respiratory Rate 20 08/06/25 15:57 Blood Pressure 117/71 08/06/25 15:57 Pulse Oximetry 100 08/06/25 15:57 Temperature 97.7 F 08/07/25 17:50 Pulse Rate 65 08/07/25 17:50 Respiratory Rate 18 08/07/25 17:50 Blood Pressure 105/80 08/07/25 17:50 Pulse Oximetry 100 08/07/25 17:50 Oxygen Delivery Room Air 08/07/25 16:53 Oxygen Flow Rate 8 08/07/25 16:21 <Abeba Oconnell MD - Last Filed: 08/08/25 08:10> MDM - Abdominal Pain MDM Narrative Medical decision making narrative: Patient is a 35-year-old male who presents to the ER with left-sided flank pain. He reports he was here in the ER yesterday and diagnosed with a kidney stone. Patient reports he declines pain medication at that time and went home feeling relatively comfortable. He reports today the pain became significantly worse in his left flank. Patient also endorses decreased urine output. He denies any nausea/vomiting, recent fevers, or chest pain. Patient denies any other medical history relevant to this ER visit. Labs Ordered: CBC, CMP, UA Imaging Ordered: KUB Medications Ordered: 1 L normal saline IV bolus, Dilaudid 1 mg IV, morphine 4 mg IV, Benadryl 25 mg IV, Reglan 10 mg IV, Zofran 4 mg IV Diagnosis: Kidney stone Consults: 2129-Spoke with Dr. David, Urology, who was in agreement with plan for patient to be admitted for pain control. Patient should be NPO at midnight. 2329-Spoke with hospitalist, Dr. Hays, who was in agreement with plan for patient's admission. Patient will be admitted to the med/surg floor. He will be started on ceftriaxone IV to treat his urinary tract infection. MDM: Results of imaging and lab work shared with patient. It was advised patient be admitted to the hospital for further evaluation and treatment. Patient verbalized understanding and is in agreement with plan. <Loreto Childs APRN - Last Filed: 08/06/25 23:33> Differential Diagnosis Differential diagnosis: Likely abdominal pain, calculus of kidney and constipation <Loreto Childs APRN - Last Filed: 08/06/25 23:33> Lab Data Attestation: I reviewed the patient's lab results. <Loreto Childs MANAGER FRONT OFFICE - Last Filed: 08/06/25 23:33> Result diagrams: 08/07/25 05:17 08/07/25 05:17 <Loreto Childs APRN - Last Filed: 08/06/25 23:33> Labs: Lab Results 08/06/25 08/06/25 Range/Units 19:29 20:21 WBC 12.6 H (4.5-10.0) K/mm3 RBC 4.75 (4.6-6.20) M/mm3 Hgb 13.7 L (14.0-18.0) g/dL Hct 41.2 L (42.0-52.0) % MCV 86.7 (80-100) fl MCH 28.8 (26-34) pg MCHC 33.3 (32-36) g/dl RDW 13.7 (11.5-14.5) % Plt Count 253 (150-375) k/mm3 MPV 9.7 (7.4-10.4) fl Immature Gran % (Auto) 0.3 (0-0.5) % Neut % (Auto) 83.6 H (45.5-73.1) % Lymph % (Auto) 10.5 L (18.3-44.2) % [place] % (Auto) 4.8 (2.6-8.5) % Eos % (Auto) 0.4 (0-4.4) % Baso % (Auto) 0.4 (0.2-1.2) % Lymph # (Auto) 1.33 (0.9-3.2) K/mm3 [place] # (Auto) 0.6 (0.1-0.6) K/mm3 Eos # (Auto) 0.1 (0-0.3) K/mm3 Baso # (Auto) 0.1 (0.0-0.1) K/mm3 Abs Immat Gran (auto) 0.04 H (0.00-0.031) K/mm3 Absolute Neuts (auto) 10.6 H (1.3-6.7) K/mm3 Absolute Nucleated RBC 0.000 (0.0-0.012) K/mm3 Nucleated RBC % 0.0 (0.0-0.2) % Sodium 137 (137-145) mmol/L Potassium 4.4 (3.4-5.0) mmol/L Chloride 103 (98-107) mmol/L Carbon Dioxide 25 (22-30) mmol/L Anion Gap 9 (4-12) mmol/L BUN 17 (9-20) mg/dL Creatinine 0.89 (0.7-1.3) mg/dL Estim Creat Clear Calc 109 ml/min Estimated GFR > 60 (59 - ) Glucose 107 (65-110) mg/dL Calcium 9.4 (8.4-10.2) mg/dL Total Bilirubin 0.5 (0.2-1.3) mg/dL AST 31 (17-59) U/L ALT 16 (6-50) U/L Alkaline Phosphatase 71 (38-126) U/L Total Protein 7.6 (6.3-8.2) g/dL Albumin 4.6 (3.5-5.1) g/dL Urine Color Yellow (Yellow) Urine Appearance Cloudy H (Clear) Urine pH 7.5 (5.0-9.0) Ur Specific [place] 1.024 (1.001-1.035) Urine Protein Trace (Negative) mg/dL Urine Glucose (UA) Negative (Negative) mg/dL Urine Ketones 1+ H (Negative) mg/dL Ur Blood (Man) 3+ H (Negative) Urine Nitrate Negative (Negative) Urine Bilirubin Negative (Negative) Urine Urobilinogen 1.0 (<2.0) mg/dL Leukocyte Esterase Rfl Trace H (Negative) CHARLEEN/UL Urine RBC >100 H (0-2) /hpf Urine WBC 6-10 H (0-3) /hpf Ur Squamous Epith Cells None seen (Few) /hpf Urine Bacteria None seen /hpf Urine Casts 0-2 <Loreto L. Amadeo, MANAGER FRONT OFFICE - Last Filed: 08/06/25 23:33> Lab Results 08/06/25 08/06/25 Range/Units 19:29 20:21 WBC 12.6 H (4.5-10.0) K/mm3 RBC 4.75 (4.6-6.20) M/mm3 Hgb 13.7 L (14.0-18.0) g/dL Hct 41.2 L (42.0-52.0) % MCV 86.7 (80-100) fl MCH 28.8 (26-34) pg MCHC 33.3 (32-36) g/dl RDW 13.7 (11.5-14.5) % Plt Count 253 (150-375) k/mm3 MPV 9.7 (7.4-10.4) fl Immature Gran % (Auto) 0.3 (0-0.5) % Neut % (Auto) 83.6 H (45.5-73.1) % Lymph % (Auto) 10.5 L (18.3-44.2) % [place] % (Auto) 4.8 (2.6-8.5) % Eos % (Auto) 0.4 (0-4.4) % Baso % (Auto) 0.4 (0.2-1.2) % Lymph # (Auto) 1.33 (0.9-3.2) K/mm3 [place] # (Auto) 0.6 (0.1-0.6) K/mm3 Eos # (Auto) 0.1 (0-0.3) K/mm3 Baso # (Auto) 0.1 (0.0-0.1) K/mm3 Abs Immat Gran (auto) 0.04 H (0.00-0.031) K/mm3 Absolute Neuts (auto) 10.6 H (1.3-6.7) K/mm3 Absolute Nucleated RBC 0.000 (0.0-0.012) K/mm3 Nucleated RBC % 0.0 (0.0-0.2) % Sodium 137 (137-145) mmol/L Potassium 4.4 (3.4-5.0) mmol/L Chloride 103 (98-107) mmol/L Carbon Dioxide 25 (22-30) mmol/L Anion Gap 9 (4-12) mmol/L BUN 17 (9-20) mg/dL Creatinine 0.89 (0.7-1.3) mg/dL Estim Creat Clear Calc 109 ml/min Estimated GFR > 60 (59 - ) Glucose 107 (65-110) mg/dL Calcium 9.4 (8.4-10.2) mg/dL Total Bilirubin 0.5 (0.2-1.3) mg/dL AST 31 (17-59) U/L ALT 16 (6-50) U/L Alkaline Phosphatase 71 (38-126) U/L Total Protein 7.6 (6.3-8.2) g/dL Albumin 4.6 (3.5-5.1) g/dL Urine Color Yellow (Yellow) Urine Appearance Cloudy H (Clear) Urine pH 7.5 (5.0-9.0) Ur Specific [place] 1.024 (1.001-1.035) Urine Protein Trace (Negative) mg/dL Urine Glucose (UA) Negative (Negative) mg/dL Urine Ketones 1+ H (Negative) mg/dL Ur Blood (Man) 3+ H (Negative) Urine Nitrate Negative (Negative) Urine Bilirubin Negative (Negative) Urine Urobilinogen 1.0 (<2.0) mg/dL Leukocyte Esterase Rfl Trace H (Negative) CHARLEEN/UL Urine RBC >100 H (0-2) /hpf Urine WBC 6-10 H (0-3) /hpf Ur Squamous Epith Cells None seen (Few) /hpf Urine Bacteria None seen /hpf Urine Casts 0-2 <Abeba Oconnell MD - Last Filed: 08/08/25 08:10> Imaging Data Attestation: I personally reviewed and interpreted this imaging study as follows: <Loreto Childs APRN - Last Filed: 08/06/25 23:33> Radiologist's impression: ITS Impressions Abdomen X-Ray 08/06/25 20:23 IMPRESSION: 1. Small stone proximal right ureter persists. 2. Small stone left kidney persists. <Loreto Childs APRN - Last Filed: 08/06/25 23:33> ITS Impressions Abdomen X-Ray 08/06/25 20:23 IMPRESSION: 1. Small stone proximal right ureter persists. 2. Small stone left kidney persists. <Abeba Oconnell MD - Last Filed: 08/08/25 08:10> Discharge Plan Discharge Clinical Impression: Kidney calculi, Inadequate pain control, Urinary tract infection <Loreto Childs APRN - Last Filed: 08/06/25 23:33> Patient Disposition: Still a Patient <Loreto Childs APRN - Last Filed: 08/06/25 23:33> Condition: Stable <Loreto Childs APRN - Last Filed: 08/06/25 23:33>
[2025-08-06] MEDS: SODIUM CHLORIDE 0.9% IV 1,000 ML 999 ML IV CONT (19:32)
[2025-08-06] MEDS: MORPHINE SULFATE (*CRX) 4 MG/ML INJ IV PUSH (19:32)
[2025-08-06 19:35] LABS: Hematocrit 41.2 % (42.0-52.0); Hemoglobin 13.7 g/dL (14.0-18.0); Immature Granulocyte Percent A 0.3 % (0-0.5); Lymphocytes Absolute Auto 1.33 K/mm3 (0.9-3.2); Mean Corpuscular HGB Conc 33.3 g/dl (32-36); Mean Corpuscular Hemoglobin 28.8 pg (26-34); Mean Corpuscular Volume 86.7 fl (80-100); Nucleated Red Blood Cells Absolute Auto 0.000 K/mm3 (0.0-0.012); Nucleated Red Blood Cells Perc 0.0 % (0.0-0.2); Platelet Count Result 253 k/mm3 (150-375); Red Blood Count 4.75 M/mm3 (4.6-6.20); White Blood Count 12.6 K/mm3 (4.5-10.0)
[2025-08-06 19:45] LABS: Alanine Aminotransferase 16 U/L (6-50); Albumin Level 4.6 g/dL (3.5-5.1); Alkaline Phosphatase 71 U/L (38-126); Anion Gap 9 mmol/L (4-12); Aspartate Amino Transferase 31 U/L (17-59); Bilirubin,Total 0.5 mg/dL (0.2-1.3); Blood Urea Nitrogen 17 mg/dL (9-20); Calcium 9.4 mg/dL (8.4-10.2); Carbon Dioxide 25 mmol/L (22-30); Chloride 103 mmol/L (98-107); Estimated CRCL calculation 109 ml/min; Estimated Glomerular Filt Rate > 60; Glucose 107 mg/dL (65-110); Potassium 4.4 mmol/L (3.4-5.0); Sodium 137 mmol/L (137-145); Total Protein 7.6 g/dL (6.3-8.2)
[2025-08-06 20:31] LABS: Add Urine Microscopic? YES; Appearance Urine Cloudy (Clear); Glucose Urine UA Negative (Negative); Leukocyte Esterase Ur Trace LEU/UL (Negative); Nitrate Urine Negative (Negative); Non Pathogenic Casts 0-2; Specific Grav Ur 1.024 (1.001-1.035)
[2025-08-06] MEDS: HYDROmorphone HCL INJ (*CRX) 1 MG/ML SYR IV PUSH (20:47)
[2025-08-06] MEDS: ONDANSETRON INJ 4 MG/2 ML VIAL IV PUSH (20:51)
[2025-08-06] MEDS: METOCLOPRAMIDE HCL INJ 10 MG/2 ML VIAL IV PUSH (21:22)
[2025-08-07] VITALS (10 sets, daily range): BP systolic 101–118; BP diastolic 57–80; PULSE 50–98; RESP 14–18; TEMP 36.5–36.9; O2SAT 98–100; BMI 24.0
[2025-08-07] MEDS: cefTRIAXone 1 GM in SODIUM CHLORIDE 0.9% IV 50 ML 100 ML IVPB (00:07)
[2025-08-07] MEDS: SODIUM CHLORIDE 0.9% IV 1,000 ML 125 ML IV CONT ×2 (00:07→07:52)
--- NOTE | 2025-08-07 02:02 | PM.IMHP ---
H&P: HPI History of Present Illness Date/Time: 08/07/25 02:02 Chief Complaint: Right flank pain Narrative: 55-year-old male presents with right flank pain. CT abdomen pelvis without contrast demonstrates right kidney mild hydronephrosis and hydroureter due to obstructing proximal ureteral calculus, left mid pole 2 mm calculus without hydronephrosis. Urology consulted from the ER. Review of Systems Review of Systems: All systems reviewed & are unremarkable except as noted in HPI and below (Subject) Meds Home Medications and Allergies Home Medications ?Medication ?Instructions ?Recorded ?Confirmed ?Type tamsulosin 0.4 mg capsule (Flomax) 0.4 mg PO DAILY #14 caps 08/05/25 Rx Allergies Allergy/AdvReac Type Severity Reaction Status Date / Time iodine Allergy Rash Verified 08/06/25 15:55 zolpidem (From Ambien) AdvReac Hallucinati Verified 08/06/25 15:55 ng Vital Signs Vital Signs - 24 hr 08/06/25 15:57 08/06/25 18:10 Temperature 97.7 F Pulse Rate 81 66 Respiratory Rate 20 12 Blood Pressure 117/71 139/70 Pulse Oximetry 100 100 Exam Const: General: comfortable and no acute distress HENMT: Mouth: Yes moist mucous membranes Eyes: Pupils: Equal, round and reactive pupils present Neck: Neck: supple Resp: Effort & Inspection: normal respiratory effort Auscultation: clear to auscultation bilaterally Cardio: Rate: regular rate Rhythm: regular rhythm GI: Inspection: non-distended GI Palp: Yes Soft to palpation : General: Yes bladder normal to palpation Extrem: General: no edema H&P: Results Labs Labs: Short CBC 08/06/25 Range/Units 19:29 WBC 12.6 H (4.5-10.0) K/mm3 Hgb 13.7 L (14.0-18.0) g/dL Hct 41.2 L (42.0-52.0) % Plt Count 253 (150-375) k/mm3 BMP 08/06/25 19:29 Sodium 137 Potassium 4.4 Chloride 103 Carbon Dioxide 25 BUN 17 Creatinine 0.89 Glucose 107 Calcium 9.4 Liver Function 08/06/25 Range/Units 19:29 Total Bilirubin 0.5 (0.2-1.3) mg/dL AST 31 (17-59) U/L ALT 16 (6-50) U/L Alkaline Phosphatase 71 (38-126) U/L Albumin 4.6 (3.5-5.1) g/dL Urine 08/06/25 Range/Units 20:21 Urine Color Yellow (Yellow) Urine Appearance Cloudy H (Clear) Urine pH 7.5 (5.0-9.0) Ur Specific [place] 1.024 (1.001-1.035) Urine Protein Trace (Negative) mg/dL Urine Glucose (UA) Negative (Negative) mg/dL Assessment and Plan Assessment and plan (1) Kidney calculi: Code(s): N20.0 - Calculus of kidney Status: Acute Plan Receive antibiotics, morphine. Resting comfortably. Continue pain control. NPO. SCDs. Fluids. Urology to see. Full code. Hospitalist MIPS Advance Care Plan I have confirmed that the patient's Advanced Care Plan is present, code status is documented, or surrogate decision maker is listed in patient medical record.: Yes Medication Reconciliation I have utilized all available resources to obtain, update and review the patients current medications (includes all prescriptions, OTC, herbals, cannabis, and nutritional supplements).: Yes
--- NOTE | 2025-08-07 02:18 | ADMGEN ---
This patient, Erich Jiang, was admitted to [facility] Surg Room 327-01. Patient/family oriented to hospital policies and general routines including ID bracelet, bed and alarms, visiting hours, pain management, procedures, bathroom and other care routines, personal items, smoking policy, room service/diet, and visiting hours. Information on how to activate the Rapid Response Team has been discussed. Patient/Family are encouraged to report perceived risks to care and to ask questions if they do not understand what they are told or what they should do.
[2025-08-07] MEDS: MORPHINE SULFATE (*CRX) 4 MG/ML INJ 2 MG IV PUSH ×3 (02:57→10:08)
[2025-08-07 06:04] LABS: Hematocrit 34.4 % (42.0-52.0); Hemoglobin 11.3 g/dL (14.0-18.0); Immature Granulocyte Percent A 0.5 % (0-0.5); Lymphocytes Absolute Auto 2.51 K/mm3 (0.9-3.2); Mean Corpuscular HGB Conc 32.8 g/dl (32-36); Mean Corpuscular Hemoglobin 28.8 pg (26-34); Mean Corpuscular Volume 87.5 fl (80-100); Nucleated Red Blood Cells Absolute Auto 0.000 K/mm3 (0.0-0.012); Nucleated Red Blood Cells Perc 0.0 % (0.0-0.2); Platelet Count Result 196 k/mm3 (150-375); Red Blood Count 3.93 M/mm3 (4.6-6.20); White Blood Count 9.2 K/mm3 (4.5-10.0)
[2025-08-07 06:14] LABS: INR 0.8; Prothrombin Time 11.4 Seconds (11.1-14.7)
--- NOTE | 2025-08-07 06:18 | P.CONUR_ITS ---
Assessment and Plan Assessment and plan (1) Right ureteral stone: Code(s): N20.1 - Calculus of ureter Status: Acute Assessment and Plan: * 4 mm right proximal ureteral stone without signs symptoms of urinary tract infection * Will repeat KUB this morning make decision about definitive management with either right ESWL tomorrow or cystoscopy with right ureteroscopy, stone extraction with possible laser lithotripsy retrograde pyelogram and stent placement today or tomorrow Urology Consult Note HPI Date Seen: 08/07/25 Requesting Physician: Norah Hays MD Primary Care Provider: Raya Silva, CAFETERIA TABLE ATTENDANT Consult Narrative Narrative: Erich Jiang is a 35 year old male without prior history of urolithiasis who has been in the ER twice this week with a 4 mm calcified right proximal ureteral stone. This is predominantly cause pain without fevers or chills but has noticed some blood in his urine. Review of Systems 2 Review of Systems: All systems reviewed & are unremarkable except as noted in HPI and below PMFSH Family History Family History (Updated 08/07/25 @ 02:25 by Rogelio Velazquez, RN) Mother Breast cancer in female Grandparent Diabetes mellitus Sibling Cancer Social History Social History Smoking status: Former smoker Tobacco type: e-cigarettes/vaping Alcohol intake: former Substance use: current Substance use type: marijuana Other substance usage details: vapes Lack of Transportation: No Lack of Food: Often True Current Housing: I Have Housing Concerned About Future Housing: No Difficulty Paying Gas/Electric Bills: No Difficulty Paying for Meds: No Currently Unemployed: No Education: High School Diploma/GED Difficulty w/ Childcare or Family Care: No Spiritual care concerns: No Meds Home Medications and Allergies Home Medications ?Medication ?Instructions ?Recorded ?Confirmed ?Type tamsulosin 0.4 mg capsule (Flomax) 0.4 mg PO DAILY #14 caps 08/05/25 08/07/25 Rx Allergies Allergy/AdvReac Type Severity Reaction Status Date / Time iodine Allergy Rash Verified 08/07/25 03:17 zolpidem (From Ambien) AdvReac Hallucinati Verified 08/07/25 03:17 ng Vital Signs Vital Signs - 24 hr 08/06/25 15:57 08/06/25 18:10 08/07/25 01:50 Temperature 97.7 F 98.4 F Pulse Rate 81 66 93 Respiratory Rate 20 12 18 Blood Pressure 117/71 139/70 112/62 Pulse Oximetry 100 100 99 Oxygen Delivery 08/07/25 02:00 Temperature Pulse Rate 93 Respiratory Rate 18 Blood Pressure Pulse Oximetry 99 Oxygen Delivery Room Air Exam 2 Const: General: no acute distress Resp: Effort & Inspection: normal respiratory effort GI: Inspection: non-distended GI Palp: No abdominal tenderness and No Guarding due to palpation present (GI) Auscultation: normal bowel sounds Results Labs 08/07/25 05:17 08/06/25 19:29 Labs: Short CBC 08/06/25 08/07/25 Range/Units 19:29 05:17 WBC 12.6 H 9.2 (4.5-10.0) K/mm3 Hgb 13.7 L 11.3 L (14.0-18.0) g/dL Hct 41.2 L 34.4 L (42.0-52.0) % Plt Count 253 196 (150-375) k/mm3 BMP 08/06/25 19:29 Sodium 137 Potassium 4.4 Chloride 103 Carbon Dioxide 25 BUN 17 Creatinine 0.89 Glucose 107 Calcium 9.4 Liver Function 08/06/25 Range/Units 19:29 Total Bilirubin 0.5 (0.2-1.3) mg/dL AST 31 (17-59) U/L ALT 16 (6-50) U/L Alkaline Phosphatase 71 (38-126) U/L Albumin 4.6 (3.5-5.1) g/dL Urine 08/06/25 Range/Units 20:21 Urine Color Yellow (Yellow) Urine Appearance Cloudy H (Clear) Urine pH 7.5 (5.0-9.0) Ur Specific [place] 1.024 (1.001-1.035) Urine Protein Trace (Negative) mg/dL Urine Glucose (UA) Negative (Negative) mg/dL
--- NOTE | 2025-08-07 06:22 | WPDHPUPDATE1 ---
History and Physical Update Update Date/Time: 08/07/25 06:22 History and Physical has been reviewed, including an updated exam of the patient. There are NO changes in the patient's condition. Risks, benefits, and alternatives have been discussed and questions answered. Patient agrees to proceed with procedure.
[2025-08-07 06:27] LABS: Anion Gap 4 mmol/L (4-12); Blood Urea Nitrogen 12 mg/dL (9-20); Calcium 8.8 mg/dL (8.4-10.2); Carbon Dioxide 25 mmol/L (22-30); Chloride 106 mmol/L (98-107); Estimated CRCL calculation 119 ml/min; Estimated Glomerular Filt Rate > 60; Glucose 93 mg/dL (65-110); Magnesium 2.0 mg/dL (1.6-2.3); Potassium 4.0 mmol/L (3.4-5.0); Sodium 135 mmol/L (137-145)
--- NOTE | 2025-08-07 07:49 | P.PNIM_ITS ---
Progress Note: A&P Assessment and Plan (1) Kidney calculi: Code(s): N20.0 - Calculus of kidney Status: Acute Assessment and Plan: * CT abdomen pelvis wo con: Right-sided obstructive uropathy * Abd XR: Small stone proximal right ureter persists. Small stone left kidney persists. * Urology consulted * Repeat KUB: Right ureteral stone no longer identified. Small left renal stone persists. No other acute abnormality noted * Either Right ESWL tomorrow or cystoscopy with right ureteroscopy, stone extraction with possible laser lithotripsy retrograde pyelogram and stent placement today or tomorrow * NPO * SCDs * Continue IVFs, PRN pain control Plan Full code. Subjective Date/time seen: 08/07/25 07:49 Interval history: 55-year-old male presents with right flank pain. CT abdomen pelvis without contrast demonstrates right kidney mild hydronephrosis and hydroureter due to obstructing proximal ureteral calculus, left mid pole 2 mm calculus without hydronephrosis. 08/07/2025 Patient sitting comfortably in bed at time of examination. Denies any difficulty the company shortness of breath, nausea/vomiting or abdominal pain at this time. Plan for cystoscopy with possible right retrograde pyelogram and right stone extraction today at 4:15 p.m. Repeat KUB this morning showed right ureteral stone the longer identified, small left renal stone persisting with no other acute abnormality noted. Review of Systems Review of Systems: All systems reviewed & are unremarkable except as noted in HPI and below (Subject) Exam Const: General: comfortable and no acute distress HENMT: Mouth: Yes moist mucous membranes Eyes: Pupils: Equal, round and reactive pupils present Neck: Neck: supple Resp: Effort & Inspection: normal respiratory effort Auscultation: clear to auscultation bilaterally Cardio: Rate: regular rate Rhythm: regular rhythm GI: Inspection: non-distended : General: Yes bladder normal to palpation Neuro: Cranial nerves: Yes Equal, round and reactive pupils present Extrem: General: no edema Objective Data Vital Signs Vital Signs: Vital Signs - 24 hr 08/06/25 15:57 08/06/25 18:10 08/07/25 01:50 Temperature 97.7 F 98.4 F Pulse Rate 81 66 93 Respiratory Rate 20 12 18 Blood Pressure 117/71 139/70 112/62 Pulse Oximetry 100 100 99 Oxygen Delivery 08/07/25 02:00 Temperature Pulse Rate 93 Respiratory Rate 18 Blood Pressure Pulse Oximetry 99 Oxygen Delivery Room Air Intake/Output Intake/Output: Intake & Output 08/04/25 08/05/25 08/06/25 08/07/25 23:59 23:59 23:59 23:59 Intake Total 1000 50 Output Total 225 Balance 1000 -175 Meds/Results Medications: Active Medications Generic Name Dose Route Start Last Admin Trade Name Freq PRN Reason Stop Dose Admin Sodium Chloride 1,000 mls @ 125 mls/hr 08/06/25 23:35 08/07/25 00:07 Normal Saline Iv IV CONT 125 mls/hr .Q8H KENDRA Administration Morphine Sulfate 2 mg 08/07/25 02:02 08/07/25 07:02 Morphine Sulfate (*Crx) 4 Mg/Ml Inj IV PUSH 2 mg Q2H PRN Administration Pain Rated 7-10 Ondansetron HCl 4 mg 08/06/25 23:33 Ondansetron Inj 4 Mg/2 Ml Vial IV PUSH Q4H PRN Nausea Labs Labs: Laboratory Results - last 24 hr 08/06/25 08/06/25 08/07/25 19:29 20:21 05:17 WBC 12.6 H 9.2 RBC 4.75 3.93 L Hgb 13.7 L 11.3 L Hct 41.2 L 34.4 L MCV 86.7 87.5 MCH 28.8 28.8 MCHC 33.3 32.8 RDW 13.7 13.7 Plt Count 253 196 MPV 9.7 10.6 H Immature Gran % (Auto) 0.3 0.5 Neut % (Auto) 83.6 H 59.3 Lymph % (Auto) 10.5 L 27.2 [place] % (Auto) 4.8 10.7 H Eos % (Auto) 0.4 1.8 Baso % (Auto) 0.4 0.5 Lymph # (Auto) 1.33 2.51 [place] # (Auto) 0.6 1.0 H Eos # (Auto) 0.1 0.2 Baso # (Auto) 0.1 0.1 Abs Immat Gran (auto) 0.04 H 0.05 H Absolute Neuts (auto) 10.6 H 5.5 Absolute Nucleated RBC 0.000 0.000 Nucleated RBC % 0.0 0.0 PT 11.4 INR 0.8 Sodium 137 135 L Potassium 4.4 4.0 Chloride 103 106 Carbon Dioxide 25 25 Anion Gap 9 4 BUN 17 12 D Creatinine 0.89 0.82 Estim Creat Clear Calc 109 119 Estimated GFR > 60 > 60 Glucose 107 93 Calcium 9.4 8.8 Magnesium 2.0 Total Bilirubin 0.5 AST 31 ALT 16 Alkaline Phosphatase 71 Total Protein 7.6 Albumin 4.6 Urine Color Yellow Urine Appearance Cloudy H Urine pH 7.5 Ur Specific [place] 1.024 Urine Protein Trace Urine Glucose (UA) Negative Urine Ketones 1+ H Ur Blood (Man) 3+ H Urine Nitrate Negative Urine Bilirubin Negative Urine Urobilinogen 1.0 Leukocyte Esterase Rfl Trace H Urine RBC >100 H Urine WBC 6-10 H Ur Squamous Epith Cells None seen Urine Bacteria None seen Urine Casts 0-2
[2025-08-07] MEDS: ONDANSETRON INJ 4 MG/2 ML VIAL IV PUSH (07:56)
--- NOTE | 2025-08-07 14:27 | PC.NURSE ---
To OR per Wheelchair IV Saline locked. Report given to
[2025-08-07] MEDS: LACTATED RINGERS 1,000 ML 30 ML IV CONT (14:28)
--- NOTE | 2025-08-07 14:36 | P.PNAN_ITS ---
Anes - Initial Pre Proc Eval Procedure: Operation Date: 08/07/25 16:15 Proposed Procedures p Cystoscopy, Right Ureteroscopy, Possible Right Retrograde Pyelogram, Possible Right Stone Extraction, Possible Right Stent Placement, Possible Holmium Laser Procedure - Ferdinand Lozano MD Date/Time: 08/07/25 14:36 Surgeon: Norah Hays MD Pre Op Diagnosis: Kidney stone Patient Data Age: 35 Gender: M Height: 1.8 m Weight: 78.2 kg Last Vital Signs Temp 36.9 C 08/07/25 01:50 Pulse 93 08/07/25 02:00 Resp 18 08/07/25 02:00 BP 112/62 08/07/25 01:50 Pulse Ox 99 08/07/25 02:00 O2 Del Method Room Air 08/07/25 02:00 Allergies Allergy/AdvReac Type Severity Reaction Status Date / Time iodine Allergy Rash Verified 08/07/25 03:17 zolpidem (From Ambien) AdvReac Hallucinati Verified 08/07/25 03:17 ng Home Medications ?Medication ?Instructions ?Recorded ?Confirmed ?Type tamsulosin 0.4 mg capsule (Flomax) 0.4 mg PO DAILY #14 caps 08/05/25 08/07/25 Rx Laboratory Tests 08/06/25 08/06/25 08/07/25 19:29 20:21 05:17 WBC 12.6 H K/mm3 9.2 K/mm3 (4.5-10.0) (4.5-10.0) RBC 4.75 M/mm3 3.93 L M/mm3 (4.6-6.20) (4.6-6.20) Hgb 13.7 L g/dL 11.3 L g/dL (14.0-18.0) (14.0-18.0) Hct 41.2 L % 34.4 L % (42.0-52.0) (42.0-52.0) MCV 86.7 fl 87.5 fl (80-100) (80-100) MCH 28.8 pg 28.8 pg (26-34) (26-34) MCHC 33.3 g/dl 32.8 g/dl (32-36) (32-36) RDW 13.7 % 13.7 % (11.5-14.5) (11.5-14.5) Plt Count 253 k/mm3 196 k/mm3 (150-375) (150-375) MPV 9.7 fl 10.6 H fl (7.4-10.4) (7.4-10.4) Immature Gran % (Auto) 0.3 % 0.5 % (0-0.5) (0-0.5) Neut % (Auto) 83.6 H % 59.3 % (45.5-73.1) (45.5-73.1) Lymph % (Auto) 10.5 L % 27.2 % (18.3-44.2) (18.3-44.2) [place] % (Auto) 4.8 % 10.7 H % (2.6-8.5) (2.6-8.5) Eos % (Auto) 0.4 % 1.8 % (0-4.4) (0-4.4) Baso % (Auto) 0.4 % 0.5 % (0.2-1.2) (0.2-1.2) Lymph # (Auto) 1.33 K/mm3 2.51 K/mm3 (0.9-3.2) (0.9-3.2) [place] # (Auto) 0.6 K/mm3 1.0 H K/mm3 (0.1-0.6) (0.1-0.6) Eos # (Auto) 0.1 K/mm3 0.2 K/mm3 (0-0.3) (0-0.3) Baso # (Auto) 0.1 K/mm3 0.1 K/mm3 (0.0-0.1) (0.0-0.1) Abs Immat Gran (auto) 0.04 H K/mm3 0.05 H K/mm3 (0.00-0.031) (0.00-0.031) Absolute Neuts (auto) 10.6 H K/mm3 5.5 K/mm3 (1.3-6.7) (1.3-6.7) Absolute Nucleated RBC 0.000 K/mm3 0.000 K/mm3 (0.0-0.012) (0.0-0.012) Nucleated RBC % 0.0 % 0.0 % (0.0-0.2) (0.0-0.2) PT 11.4 Seconds (11.1-14.7) INR 0.8 Sodium 137 mmol/L 135 L mmol/L (137-145) (137-145) Potassium 4.4 mmol/L 4.0 mmol/L (3.4-5.0) (3.4-5.0) Chloride 103 mmol/L 106 mmol/L (98-107) (98-107) Carbon Dioxide 25 mmol/L 25 mmol/L (22-30) (22-30) Anion Gap 9 mmol/L 4 mmol/L (4-12) (4-12) BUN 17 mg/dL 12 D mg/dL (9-20) (9-20) Creatinine 0.89 mg/dL 0.82 mg/dL (0.7-1.3) (0.7-1.3) Estim Creat Clear Calc 109 ml/min 119 ml/min Estimated GFR > 60 > 60 (59 - ) (59 - ) Glucose 107 mg/dL 93 mg/dL (65-110) (65-110) Calcium 9.4 mg/dL 8.8 mg/dL (8.4-10.2) (8.4-10.2) Magnesium 2.0 mg/dL (1.6-2.3) Total Bilirubin 0.5 mg/dL (0.2-1.3) AST 31 U/L (17-59) ALT 16 U/L (6-50) Alkaline Phosphatase 71 U/L (38-126) Total Protein 7.6 g/dL (6.3-8.2) Albumin 4.6 g/dL (3.5-5.1) Urine Color Yellow (Yellow) Urine Appearance Cloudy H (Clear) Urine pH 7.5 (5.0-9.0) Ur Specific [place] 1.024 (1.001-1.035) Urine Protein Trace mg/dL (Negative) Urine Glucose (UA) Negative mg/dL (Negative) Urine Ketones 1+ H mg/dL (Negative) Ur Blood (Man) 3+ H (Negative) Urine Nitrate Negative (Negative) Urine Bilirubin Negative (Negative) Urine Urobilinogen 1.0 mg/dL (<2.0) Leukocyte Esterase Rfl Trace H CHARLEEN/UL (Negative) Urine RBC >100 H /hpf (0-2) Urine WBC 6-10 H /hpf (0-3) Ur Squamous Epith Cells None seen /hpf (Few) Urine Bacteria None seen /hpf Urine Casts 0-2 Patient hx anesthesia problems: none Family hx anesthesia problems: none Results Review: All pre-operative results and documents have been reviewed as part of the pre- operative evaluation. [facility] Family History Family History (Updated 08/07/25 @ 02:25 by Rogelio Velazquez RN) Mother Breast cancer in female Grandparent Diabetes mellitus Sibling Cancer Social History Social History (Updated 08/07/25 @ 15:21 by David Gayle DO) Smoking status: Former smoker Tobacco type: e-cigarettes/vaping Alcohol intake: former Substance use: current Substance use type: marijuana Other substance usage details: daily Lack of Transportation: No Lack of Food: Often True Current Housing: I Have Housing Concerned About Future Housing: No Difficulty Paying Gas/Electric Bills: No Difficulty Paying for Meds: No Currently Unemployed: No Education: High School Diploma/GED Difficulty w/ Childcare or Family Care: No Spiritual care concerns: No Anes - Eval Final PreProcedure Day of Procedure 08/07/25 14:36 Patient weight: normal Heart: regular rate and rhythm Lungs: clear to auscultation Airway: Mallampati scale class II Neurological: alert and oriented Last oral intake: >/= 8 hours ASA classification: III Emergent: no Anesthetic plan: proceed Anesthesia type and monitoring: general LMA and standard monitoring Results Review: All pre-operative results and documents have been reviewed as part of the pre- operative evaluation. Informed Consent: The patient's anesthetic plan and its attendant risks and benefits were discussed with the patient/family/POA. Questions were solicited and answers provided to the satisfaction of the patient/family/POA.
[2025-08-07] MEDS: ceFAZolin 2 GM in SODIUM CHLORIDE 0.9% IV 50 ML 100 ML IVPB (15:49)
[2025-08-07] MEDS: LIDOCAINE 2% GEL UROJET 10 ML PKG MUCOUS MEM (15:52)
--- NOTE | 2025-08-07 16:09 | S_PTH ---
PATIENT: Erich Jiang LOC: [id number] U#:[id number] AGE/SX: 35/M ROOM: 327 RE08/06/[address]: Derek Khan PA-C : 1990 BED: 01 DIS: 08/07/2025 SPEC #: [id number] RECD: 08/08/25 07:20 STATUS: JESSICA GRIFFITHS #: [id number] TAMIKO: 08/07/25 16:[address]: Ferdinand Lozano DEPT: [facility] Surgical RECD BY: Lizeth Eagle ENTERED: 08/08/25 07:20 SP TYPE: Surgical OTHR DR: AB Ruelas MD James P. Rybak, MD Hollie A. Yoder, VALUE ANALYSIS COORDINATOR Tissues: A - Stone Procedures: Gross Exam Level 1 Crystalline Analysis
--- NOTE | 2025-08-07 16:24 | P.OP_ITS ---
Procedure Note - Detailed Date of Procedure 08/07/25 Pre-op Diagnosis Right proximal ureteral stone Post-op Diagnosis Same Procedure Performed Cystoscopy, right retrograde pyelography, right ureteroscopy with laser lithotripsy, stone extraction and stent placement Surgeon Ferdinand Lozano MD Anesthesia General Description of Procedure patient is brought to the operative suite was prepped draped in routine sterile fashion while in dorsal lithotomy position after the uneventful induction of a general LMA anesthetic. Cystoscopy was undertaken with a 19 F rigid cystoscope. There was no urethral stricture. Bladder mucosa is normal. There is no intravesical foreign body or neoplasm. He has a single orthotopic ureteral orifice bilaterally. A 0.035 in glidewire was advanced into the right renal pelvis. I can see and feel that the stone is still in his proximal right ureter. I dilated the distal ureter with an 8 F 10 F dilator. He has a narrow caliber ureter which made passing a 7.5 F flexible ureteral scope up bit challenging. I was, however, able to get the ureteral scope to his stone at wh ich point washed back into a midpole calyx. Using a 200 micron Artur laser fiber we dusted the stone in extracted the only residual sizable piece which was probably 2 mm or less in diameter. The placed a 4.8 F variable length stent with the proximal coil in the kidney/ renal pelvis and distal coil in the bladder. Scopes and. wires were removed and he was taken to the recovery room in good condition Urine Output 225 Drains Yes Pathology Yes Complications No immediate complications Condition Stable Disposition PACU
[2025-08-07] MEDS: fentaNYL CITRATE INJ (*CRX) 100 MCG/2 ML VIAL 25 MCG IV PUSH ×4 (16:45→16:53)
--- NOTE | 2025-08-07 16:53 | PC.NURSE ---
Returned from OR per [ ]. Report received from [CARROLL ].
[2025-08-07] MEDS: KETOROLAC 15 MG/ML VIAL (*BKC) IV PUSH (17:17)
[2025-08-07] MEDS: HYDROcodone/acetaminophen (*CRX) 5-325 MG TABLET 1 TAB PO (18:13)
[2025-08-07] MEDS: TAMSULOSIN HCL 0.4 MG CAPSULE PO (18:14)
--- NOTE | 2025-08-08 07:02 | P.DS_ITS ---
DS: Admitting Diagnosis Discharge Date 08/07/25 Admitting Diagnosis Kidney calculi DS: Discharge Diagnosis Discharge Diagnosis (1) Kidney calculi: Code(s): N20.0 - Calculus of kidney Status: Acute Assessment and Plan: * CT abdomen pelvis wo con: Right-sided obstructive uropathy * Abd XR: Small stone proximal right ureter persists. Small stone left kidney persists. * Urology consulted * Repeat KUB: Right ureteral stone no longer identified. Small left renal stone persists. No other acute abnormality noted * Either Right ESWL tomorrow or cystoscopy with right ureteroscopy, stone extraction with possible laser lithotripsy retrograde pyelogram and stent placement today or tomorrow * NPO * SCDs * Continue IVFs, PRN pain control Plan Full code. DS: Summary Hospital Course Reason for hospitalization: Right flank pain Hospital Course: Per HPI: 55-year-old male presents with right flank pain. CT abdomen pelvis without contrast demonstrates right kidney mild hydronephrosis and hydroureter due to obstructing proximal ureteral calculus, left mid pole 2 mm calculus without hydronephrosis. Urology consulted from the ER. Pre urology assessment, patient had a 4 mm right proximal ureteral stone without signs or symptoms of urinary tract infection. Repeat KUB in the morning of 08/07 showed right ureteral stone no longer identified with a small left renal stone persisting. Patient was taken for a cystoscopy, right retrograde pyelography, right ureteroscopy with laser lithotripsy, and stone extraction with stent placement. Per urology operative note: 55-year-old male presents with right flank pain. CT abdomen pelvis without contrast demonstrates right kidney mild hydronephrosis and hydroureter due to obstructing proximal ureteral calculus, left mid pole 2 mm calculus without hydronephrosis. Urology consulted from the ER. Patient tolerated the procedure well. Repeat vitals after procedure were within normal limits. Patient ambulatory without any complaints at this time. Patient is hemodynamically stable for discharge and will follow with Urology in the outpatient setting in 1-2 weeks for stent removal. Patient is amenable to this plan. Plan for discharge home at this time. Status at Discharge Functional status at discharge: independent ambulation Overall status at discharge: patient is back to baseline Time Spent with Patient Time attestation: Total time spent providing and/or coordinating discharge services: 23 Exam Const: General: comfortable and no acute distress HENMT: Mouth: Yes moist mucous membranes Eyes: Pupils: Equal, round and reactive pupils present Neck: Neck: supple Resp: Effort & Inspection: normal respiratory effort Auscultation: clear to auscultation bilaterally Cardio: Rate: regular rate Rhythm: regular rhythm GI: Inspection: non-distended : General: Yes bladder normal to palpation Neuro: Cranial nerves: Yes Equal, round and reactive pupils present Extrem: General: no edema DS: Data Data Completed and Pending Pending studies at discharge: Pending at discharge 08/07/25 16:09 Surgical [PTH] Routine Discharge Plan Discharge Attending physician on discharge: Norah Hays Consulting providers: Derek Khan; Mu David Discharging Clinician: Ferdinand Lozano Patient Disposition: Home Activity: other - see discharge instructions Diet: other - see discharge instructions Wound Care Instructions: other - see discharge instructions Discharge Instructions: 1) Activity: no driving or important decisions x24 hours. 2) Diet: resume your normal, pre-admission diet. 3) Follow-up: 7-14 days for stent removal / call for appointment ([phone]). Patient Instructions: Antibiotic Form Patient Language: Turkish Stand Alone Forms: General Discharge Information Follow-up/Referrals: Ferdinand Lozano MD [Physician, Urology] Discharge Medications: New ketorolac 10 mg tablet 10 mg PO Q6H 5 Days Qty: 20 0RF hydrocodone-acetaminophen 5-325 mg tablet 1 - 2 tablet PO Q6H PRN (Reason: pain) Qty: 20 0RF Continued tamsulosin [Flomax] 0.4 mg capsule 0.4 mg PO DAILY Qty: 14 0RF Date of admission: 08/06/25 23:33 Primary Care Provider: RicardoRaya Admitting Provider: Norah Hays Attending physician on admission: Norah Hyas Condition: Stable
== END 2025-08-07 19:00 | disposition home or self-care (01) ==
LOC: ANHED 23:33 → ANH3MEDSUR 08-07 00:41
PROVIDERS: Urology; Admitting Provider General Practice; Emergency Provider Registered Nurse; PCP Nurse Practitioner Family; Visit Provider Physician Assistant
PROC: (CPT 52352; principal; 2025-08-07 16:15)
DX: N13.2 Hydronephrosis with renal and ureteral calculous obstruction (principal); F12.90 Cannabis use, unspecified, uncomplicated; Z87.891 Personal history of nicotine dependence; Z80.3 Family history of malignant neoplasm of breast; Z80.9 Family history of malignant neoplasm, unspecified; Z83.3 Family history of diabetes mellitus
CPT/HCPCS: 52356; 36415; 74018; 74420; 80048; 80053; 81001; 82365; 83735; 85025; 85610; 87086; 88300; 96361; 96365; 96374; 96375; 96376; 99285; J0690; A4248; A9270; C1769; C2617; G0378; J0696; J1171; J1200; J1885; J2003; J2250; J2270; J2405; J2704; J2765; J3010; J7030; J7120; Q9966